=== PATIENT | female | born 1975 ===

== ENCOUNTER 2018-06-02 09:32 | Emergency (ER) | payer OTHER ==
[~2018-06-02] VITALS: Ht 152.4 cm; Wt 55.3 kg
[2018-06-02] MEDS ORDERED: KETO10TA2 PO (12:41)
[2018-06-02] MEDS ORDERED: ORPHENADRINE C100 MG PO (12:41)
== END 2018-06-02 12:49 | disposition home or self-care (01) ==
LOC: ER 09:32
DX: S20.212A Contusion of left front wall of thorax, initial encounter (principal); S20.211A Contusion of right front wall of thorax, initial encounter; S13.4XXA Sprain of ligaments of cervical spine, initial encounter; V49.9XXA Car occupant (driver) (passenger) injured in unspecified traffic accident, initial encounter; Y93.89 Activity, other specified; Y92.488 Other paved roadways as the place of occurrence of the external cause; Y99.8 Other external cause status